=== PATIENT | male | born 1985 | race African-American/Black ===

== ENCOUNTER 2016-08-17 07:43 | Emergency (ER) | payer SELFPAY ==
[~2016-08-17] VITALS: Ht 180.3 cm; Wt 79.5 kg
[~2016-08-17 07:43] MED LIST: RISP1 PO; VALP250 PO
[2016-08-17 07:44] VITALS: BP 138/84; PULSE 101; RESP 16; TEMP 97.6; O2SAT 97
--- NOTE | 2016-08-17 08:54 | PD ---
HPI Chief Complaint: Oral / Dental Pain or Problem Time Seen by Provider: 08:51 Travel History International Travel<30 days: No Contact w/Intl Traveler<30days: No Traveled to known affect area: No History of Present Illness HPI Patient comes in complaining of right upper molar dental pain that began approximately 3 days ago after biting down on a [place] [employer] causing his tooth to break. Patient denies doing anything for this. States pain radiates superiorly. It is worse with eating. Denies any known fevers or difficulty swallowing or known fevers. PFSH Past Medical History Bipolar Disorder: Yes Anxiety: Yes Depression: Yes Diminished Hearing: No Immunizations Current: Yes Schizophrenia: Yes Past Surgical History Other Surgery: Yes (r shoulder) Social History Alcohol Use: Yes Tobacco Use: Yes Substance Use: Yes Allergies-Medications (Allergen,Severity, Reaction): Coded Allergies: Shellfish (Verified Allergy, Severe, 08/17/16) Tylenol (Verified Adverse Reaction, Severe, 08/17/16) Vicodin (Verified Adverse Reaction, Severe, 08/17/16) Reported Meds & Prescriptions Reported Meds & Active Scripts Active Diclofenac Sodium DR (Diclofenac Sodium) 75 Mg Tabdr 75 Mg PO Q12HR PRN Clindamycin (Clindamycin HCl) 150 Mg Cap 2 Tab PO Q6H 10 Days Review of Systems Except as stated in HPI: all other systems reviewed are Neg Physical Exam Narrative GENERAL: Well-developed, well nourished, in no acute distress, and non-ill appearing. SKIN: Warm and dry. HEAD: Atraumatic. Normocephalic. EYES: Pupils equal and round. EOMI. No scleral icterus. No injection or drainage. ENT: No nasal bleeding or discharge. Mucous membranes pink and moist. Broken tooth #1 no this time to palpation. There is no visible or palpable abscess. NECK: Trachea midline. Supple. No nuclear rigidity. RESPIRATORY: No accessory muscle use. No respiratory distress. MUSCULOSKELETAL: No obvious deformities. No clubbing. No cyanosis. No edema. Full range of motion. NEUROLOGICAL: Awake and alert. No obvious cranial nerve deficits. Motor grossly within normal limits. Normal speech. PSYCHIATRIC: Appropriate mood and affect; insight and judgment normal. Data Data Last Documented VS Vital Signs Date Time Temp Pulse Resp B/P Pulse Ox O2 Delivery O2 Flow Rate FiO2 08/17/16 07:44 97.6 101 16 138/84 97 Room Air [facility] Medical Decision Making Medical Screen Exam Complete: Yes Emergency Medical Condition: Yes Differential Diagnosis Dental abscess, dental infection, dentalgia, other Narrative Course The patient presented with dental pain. There is no fever. There is no significant facial swelling or evidence of cellulitis. There is poor dentition but no evidence of drainable abscess at this time. There is no evidence of significant deep or invading abscess at this time. The patient will be placed on antibiotics and pain medication. The patient was instructed to follow up with a dentist. The patient was given the dental referral sheet. Warnings were discussed with the patient regarding worsening of infection. The patient is to return if pain worsens, develops progressive swelling or facial redness or fever. The patient agrees with plan. Dental block was performed with adequate analgesia. Patient in no obvious distress upon re-evaluation. Patient was asked if they wanted to speak to my attending, which the patient did not wish to do at this time. Any questions/concerns in reference to patient diagnosis/condition discussed and clarified prior to patient's discharge. Reinforced sheer importance of close follow up with patient's primary physician or primary care clinic. Instructed patient to return to ED immediately, if symptoms return/ worsen. Pt showed understanding of above instructions. Further instructions and recommendations were detailed in discharge paperwork. Pt ambulated without difficulty out of ED at discharge. Procedures Procedure Narrative Verbal consent was obtained. Dental block was performed using Marcaine with epi. Patient tolerated procedure well. There is no complication. Diagnosis Primary Impression: Dentalgia Patient Instructions: Dental Abscess (ED), Dental Caries (ED), General Instructions Additional Instructions: Follow-up with your primary care physician and dentist as soon as possible. Rinse mouth with warm salt water gargles. Take all medication as prescribed. Use [id number] dental cement for additional pain control. Follow instructions on the packaging. Return to the emergency department if symptoms get worse. Med/Other Pt SpecificInfo: Prescription(s) given Scripts Diclofenac Sodium DR 75 Mg Tabdr75 Mg PO Q12HR PRN (PAIN SCALE 1 TO 10) #20 TAB Ref 0 Prov:Lenka Mendoza MD 08/17/16 Clindamycin 150 Mg Cap2 Tab PO Q6H 10 Days Ref 0 Prov:Lenka Mendoza MD 08/17/16 Disposition: 01 DISCHARGE HOME Condition: Stable Anton Cage Aug 17, 2016 08:54
[2016-08-17] MEDS ORDERED: DICL75TA PO (08:55)
[2016-08-17] MEDS ORDERED: CLIN1CAP5 PO (08:55)
== END 2016-08-17 09:01 | disposition home or self-care (01) ==
LOC: NEPB 07:43
DX: K08.89 Other specified disorders of teeth and supporting structures (principal)
CPT/HCPCS: 64400; 99282